=== PATIENT | male | born 1995 | race American Indian/Alaskan Native ===

== ENCOUNTER 2018-05-20 00:20 | Emergency (ER) | payer SELFPAY ==
[2018-05-20 00:48] VITALS: TEMP 98.3
[2018-05-20] MEDS ORDERED: Oxycodone/Acetaminophen 5/325 mg Tab PO STA (01:27)
--- NOTE | 2018-05-20 01:32 | ED PDOC ---
Arrival/HPI - General Chief Complaint: Lower Extremity Problem/Injury Historian: Patient - History of Present Illness Narrative History of Present Illness (Text): 05/20/18 01:30 A 23 year old male who presents to the emergency department complaining of left ankle pain since yesterday. Patient reports never having this pain before. States last night, on the way out, felt some pain but did not think much of it. Later on throughout the day at night on his way home, began experiencing a lot of pain, resulting in limping. Patient denies any injury, or any other complaints at this time. NKDA. Also, patient mentions having Motrin 20-30 minutes ago, however had no relief, and had no relief when he took Tylenol at home as well. Time/Duration: Prior to Arrival Symptom Onset: Sudden Symptom Course: Unchanged Quality: Aching Activities at Onset: Rest Context: Home Past Medical History - Provider Review Nursing Documentation Reviewed: Yes - Travel History Have you recently traveled outside [place] w/in the past 3 mons?: No - Infectious Disease Hx of Infectious Diseases: None - Cardiac Hx Cardiac Disorders: No - Pulmonary Hx Respiratory Disorders: Yes Hx Asthma: Yes (as a child) - Neurological Hx Neurological Disorder: No - HEENT Hx HEENT Disorder: No - Renal Hx Renal Disorder: No - Endocrine/Metabolic Hx Endocrine Disorders: No - Hematological/Oncological Hx Blood Disorders: No - Integumentary Hx Dermatological Disorder: No - Musculoskeletal/Rheumatological Hx Musculoskeletal Disorders: No - Gastrointestinal Hx Gastrointestinal Disorders: No - Genitourinary/Gynecological Hx Genitourinary Disorders: No - Psychiatric Hx Psychophysiologic Disorder: No Hx Substance Use: No - Anesthesia Hx Anesthesia: No Family/Social History - Physician Review Nursing Documentation Reviewed: Yes Family/Social History: No Known Family HX Smoking Status: Never Smoked Hx Alcohol Use: Yes Frequency of alcohol use: Socially Hx Substance Use: No Allergies/Home Meds Allergies/Adverse Reactions: Allergies No Known Allergies Allergy (Verified 05/20/18 00:45) Review of Systems - Physician Review All systems were reviewed & negative as marked: Yes - Review of Systems Constitutional: absent: Fevers Musculoskeletal: Other (left anle pain) Physical Exam Vital Signs Reviewed: Yes Vital Signs Temp Pulse Resp BP Pulse Ox 05/20/18 00:47 98.3 F 60 18 147/72 100 Temperature: Afebrile Blood Pressure: Normal Pulse: Regular Respiratory Rate: Normal Appearance: Positive for: Well-Appearing, Non-Toxic, Comfortable Pain Distress: None Mental Status: Positive for: Alert and Oriented X 3 - Systems Exam Respiratory/Chest: Present: Clear to Auscultation, Good Air Exchange. No: Respiratory Distress, Accessory Muscle Use Cardiovascular: Present: Regular Rate and Rhythm, Normal S1, S2. No: Murmurs Upper Extremity: Present: Normal Inspection. No: Cyanosis, Edema Lower Extremity: Present: NORMAL PULSES, Tenderness (tenderness to palpation at left lateral ankle) Neurological: Present: GCS=15, CN II-XII Intact, Speech Normal Skin: Present: Warm, Dry, Normal Color. No: Rashes Psychiatric: Present: Alert, Oriented x 3, Normal Insight, Normal Concentration Medical Decision Making ED Course and Treatment: 05/20/18 01:33 Impression: 23 year old male with left ankle pain, no injury. Plan: -- Left Ankle X-ray -- Oxycodone -- Motrin -- Reassess and disposition Progress Notes: 05/20/18 01:35 Left-Ankle X-ray negative findings, no dislocations/fractures. Patient updated on findings and will follow up with orthopedic surgeon. Ortho follow up provided with ankle wrapped in EFRAÍN bandage. He is stable for discharge. - RAD Interpretation Radiology Orders: 05/20/18 00:48 ANKLE LEFT 3 VIEWS ROUTINE [RAD] Stat - Medication Orders Current Medication Orders: Discontinued Medications Ibuprofen (Motrin Tab) 600 mg PO STAT STA Stop: 05/20/18 00:49 Last Admin: 05/20/18 00:55 Dose: 600 mg MAR Pain/Vitals Document 05/20/18 00:55 JOL (Rec: 05/20/18 01:[address] [facility] [id number]) Pain Reassessment Is This A Pain ReAssessment? No Sleep Is patient sleeping during reassessment? No Presence of Pain Presence of Pain Yes Pain Scale Used Protocol: PSCALES Pain Scale Used Numeric Location Left, Right or Bilateral Left Pain Location Body Site Ankle Intensity 6 Scale Used Numeric - Scribe Statement The provider has reviewed the documentation as recorded by the Scribe Antelmo Veliz Provider Scribe Attestation: All medical record entries made by the Scribe were at my direction and personally dictated by me. I have reviewed the chart and agree that the record accurately reflects my personal performance of the history, physical exam, medical decision making, and the department course for this patient. I have also personally directed, reviewed, and agree with the discharge instructions and disposition. Disposition/Present on Arrival - Present on Arrival Any Indicators Present on Arrival: No History of DVT/PE: No History of Uncontrolled Diabetes: No Urinary Catheter: No History of Decub. Ulcer: No History Surgical Site Infection Following: None - Disposition Have Diagnosis and Disposition been Completed?: Yes Diagnosis: Ankle sprain Disposition: HOME/ ROUTINE Disposition Time: 02:00 Patient Plan: Discharge Condition: STABLE Discharge Instructions (ExitCare): Ankle Sprain (DC), Foot Sprain (DC) Print Language: SLOVENIAN Additional Instructions: All medical record entries made by the Scribe were at my direction and personally dictated by me. I have reviewed the chart and agree that the record accurately reflects my personal performance of the history, physical exam, medical decision making, and the department course for this patient. I have also personally directed, reviewed, and agree with the discharge instructions and disposition. Please elevated your foot at night and use ice to help decrease the swelling Please take Motrin every SIX hours for pain WITH food Prescriptions: Cyclobenzaprine [Cyclobenzaprine HCl] 10 mg PO Q8H #10 tab Ibuprofen [Motrin] 600 mg PO Q6H #12 tab Referrals: [facility] at [facility] [place] [Outside] - Follow up with primary Nuria Pandya MD [Medical Doctor] - Follow up with primary Forms: [employer] (Mongolian)
[2018-05-20 01:45] VITALS: BP 135/70; PULSE 64; RESP 16; O2SAT 99
--- NOTE | 2018-05-20 10:12 | RAD ---
Date of service: 05/20/2018 PROCEDURE: Left Ankle Radiographs. HISTORY: ANKLE PAIN COMPARISON: None available. FINDINGS: BONES: Normal. No fracture. JOINTS: Normal. No osteoarthritis. Ankle mortise maintained. Talar dome intact SOFT TISSUES: Normal. OTHER FINDINGS: None. IMPRESSION: Normal left ankle radiographs.
== END 2018-05-20 01:40 | disposition home or self-care (01) ==
LOC: ED 00:20
DX: S93.402A Sprain of unspecified ligament of left ankle, initial encounter (principal); X58.XXXA Exposure to other specified factors, initial encounter